=== PATIENT | male | born 1990 | race Caucasian/White ===

== ENCOUNTER → 2018-02-17 | Outpatient (CLI) | payer OTHER ==
[2018-02-17 12:49] LABS: FOLLICLE STIMULAT HORMONE 2.75 IU/L; LUTEINIZING HORMONE 3.69 IU/L
== END | disposition home or self-care (01) ==
LOC: C.LAB1850 10:27
PROVIDERS: ATTEND Internal Medicine Endocrinology, Diabetes & Metabolism
DX: N52.9 Male erectile dysfunction, unspecified (principal)

== ENCOUNTER 2019-03-11 18:39 | Inpatient (IN) ==
--- OUTSIDE RECORDS SUMMARY | 2019-03-11 18:42 | External Medical Summary | Continuity of Care Document ---
:1990 Author Name Luc Rodriguez, Provider Address Unavailable Unavailable , Care Team Providers Name Role Phone Unavailable Unavailable Unavailable Aquiles Gaston M.D. Unavailable [email or web address] Unavailable Unavailable Unavailable Unavailable Unavailable Problems Erectile dysfunction (607.84) (N52.9) Allergies and Adverse Reactions No Known Drug Allergies (Allergy) Medications Sildenafil Citrate 100 MG Oral Tablet; T STEPHIE 1/2 TO 1 TABLET PO 1 HOUR BEFORE INTERCOURSE PRN Michael Gaston Start: 17-Feb-2018 Quantity: 5 Refills: 0 Multi Vitamin Oral Tablet; TAKE 1 TABLET DAILYMichael Shafer Start: 24-Nov-2017 Refills: 0 Procedures History of Gastric Surgery Status: Compl eted History of Appendectomy Status: Complete d Immunizations Immunizations not documented Family History Grandparent Family history of Alzheimer's disease (V17.2) (Z82.0) Status : Active Family history of hypertension (V17.49) (Z82.49) Status: Act emigdio Father Family history of hypertension (V17.49) (Z82.49) Status: Act emigdio Mother Family history of hyperlipidemia (V18.19) (Z83.438) Status: Active Social History - Smoking Status Never smoker Plan of Treatment Planned Observations Planned Goals not documented Results No Known Results Results not documented Encounters Appointment; Aquiles Gaston M.D. 17-Feb-2018 9:30 Encounter Diagnosis: Problem not documented
[2019-03-11] MEDS ORDERED: ONDANSETRON INJ 2 MG/ML 2 ML VIAL IV STA (18:50)
[2019-03-11] MEDS ORDERED: SODIUM CHLORIDE 0.9% 1000ML 1,000 ML IV SCH (19:00)
[2019-03-11 19:11] LABS: Basophils # (auto) 0.01 K/uL (0-0.2); Basophils % (auto) 0.1 %; Hematocrit (blood only) 42.8 % (42-52); Hemoglobin 14.8 g/dL (14.0-18.0); Immature Granulocytes # (auto) 0.02 K/uL (0.00-0.02); Immature Granulocytes % (auto) 0.3 %; Lymphocytes # (auto) 1.31 K/uL (1.2-3.4); Lymphocytes % (auto) 18.3 %; Mean Corpuscular Hgb Conc 34.6 g/dL (32-36); Mean Corpuscular Volume 85.4 fL (80-100); Mean Platelet Volume 9.1 fL (7.4-10.4); Monocytes # (auto) 0.43 K/uL (0.11-0.59); Neutrophils # (auto) 5.38 K/uL (1.4-6.5); Neutrophils % (auto) 75.3 %; Platelet Count 225 K/uL (130-400); RDW Coefficient of Variation 12.3 % (11.5-14.5); RDW Standard Deviation 38.4 fL (36.4-46.3); Red Blood Count 5.01 M/uL (4.7-6.1); White Blood Count 7.15 K/uL (4.8-10.8)
[2019-03-11 19:20] LABS: iSTAT Creatinine 0.8 mg/dl (0.6-1.3); iSTAT Ionized Calcium 1.14 mmol/l (1.12-1.32); iSTAT Potassium 3.9 mEq/L (3.3-5.0)
[2019-03-11 19:32] LABS: Albumin Level 4.2 gm/dl (3.4-5.0); BUN Creatinine Ratio 9.9 (10-20); Calcium 8.8 mg/dl (8.5-10.1); Creatinine Clr Calc Pharmacy 138.4 ml/min; Est GFR (African American) 136.4; Est GFR (Non-African American) 117.7; Potassium 3.8 mmol/L (3.5-5.1)
[2019-03-11 19:35] LABS: Albumin Globulin Ratio 1.2 (0.9-2); Bilirubin,Total 0.7 mg/dl (0.2-1); Globulin 3.4 gm/dl (2.5-4.0); Total Protein 7.6 gm/dl (6.4-8.2)
[2019-03-11] MEDS ORDERED: IOVERSOL 100ml IV PRN (19:37)
--- NOTE | 2019-03-11 19:56 | CT Scan Report ---
ABDOMEN AND PELVIS CT WITH IV CONTRAST CT DOSE: 435.96 mGy.cm HISTORY: Mid abdominal pain. TECHNIQUE: Multiaxial CT images of the abdomen and pelvis were performed following the use of intrave nous contrast. A dose lowering technique was utilized adhering to the principles of ALARA. COMPARISON STUDY: None. FINDINGS: The lung bases are clear. No pneumoperitoneum. No pneumatosis. No fractures within the visu alized osseous structures. The liver, gallbladder, spleen, pancreas, adrenal glands, and kidneys are unremarkable. No hydronephrosis. No retroperitoneal lymphadenopathy. Normal bladder. There is suggest ion of a prior right hemicolectomy. There are dilated loops of small bowel within the mid to lower ab domen containing stool suggesting stasis in the setting of a small bowel obstruction. Some of the sma ll bowel loops are distended up to 6 cm. The exact transition point is difficult to identify. The bow el within the right lower quadrant demonstrates mild adjacent edema. IMPRESSION: 1. Multiple distended bowel loops within the mid to lower abdomen consistent with a small bowel obstr uction. Exact transition point is difficult to identify. The distended bowel loops within the right l ower quadrant demonstrate mild surrounding edema without pneumatosis. However, this could represent e valeria vascular compromise. Clinical correlation recommended. 2. Suspect a prior right hemicolectomy. Electronically signed by: Karson Ma M.D. 03/11/2019 7:54 PM
[2019-03-11] MEDS ORDERED: SODIUM CHLORIDE 0.9% 1000ML 1,000 ML IV ONE (20:03)
[2019-03-11] MEDS ORDERED: MoRPHine SULFATE 4 MG/ML 1 ML CARP\\VIAL IV PRN (20:19)
[2019-03-11] MEDS ORDERED: ACETAMINOPHEN 65 ML IV PRN (20:30)
[2019-03-11] MEDS ORDERED: ENOXAPARIN INJ 40 MG/0.4 ML SYR SQ SCH (20:30)
--- NOTE | 2019-03-11 20:34 | Emergency Department Note ---
Entered by Vanita Washington acting as a scribe for History of Present Illness General Chief complaint: Abdominal Pain Stated complaint: PAIN IN STOMACH, HX OF INTESTINE OBSTRUCTION Source: patient History of Present Illness Onset (ago): day(s) (this morning) Location: abdomen Severity: similar to prior episodes (small bowel obstructions) Pain Consistency: + intermittent Maximum Pain Intensity: 7 Quality: + sharp Associated symptoms: + denies other symptoms (groin pain, back pain) and + nausea/vomiting (Positive nausea. Negative vomiting.) The patient is a 28 year old male who presents to the ED with complaints of intermittent abdominal pain starting this morning. The patient states that he has a history of small bowel obstructions and is concerned he has another. He states that he has had 10 over his life time that is believed to be from an abdominal surgery that he had at 3 days old. He notes he believes it was for a small bowel obstruction at that time as well. He notes that his last bowel obst ruction was in October of 2016. He states that this morning he started having sharp abdominal pain like he has had in the past. The patient complains of nausea. The patient denies vomiting, being seen yet by someone, groin pain, back pain, and a history of a cholecystectomy. Home Medications Home Medications Medication Instructions Recorded Confirmed Type No Known Home Medications 03/11/19 03/11/19 History Allergies Allergy/AdvReac Type Severity Reaction Status Date / Time No Known Allergies Allergy Unverified 03/11/19 19:54 Past Med/Surg History Medical History Hx of small bowel obstruction Surgical History Hx of appendectomy Family History Other No significant family history Social History marital status: Single Current Living Situation: Alone current occupational status: employed Feels Safe at Home: Yes Smoking Status: Never smoker Review of Systems See HPI for pertinent positives & negatives. and A total of 10 systems reviewed and were otherwise negative Physical Exam Vital Signs Vital Signs - 24 hr 03/11/19 18:41 03/11/19 20:20 Temperature 36.8 C Temperature Source Oral Sepsis Recent Fever Within 48 Hours No Sepsis New/Unexplained Change in Mental Status No Sepsis Action Taken by Nursing No Action Required Pulse Rate 79 Pulse Rate [Finger] 66 Pulse Rhythm [Finger] Regular Respiratory Rate 16 18 Respiratory Effort / Characteristics Non-Labored Spontaneous Respiratory Depth Normal Blood Pressure 159/91 H Blood Pressure [Right Arm] 145/81 H Blood Pressure Mean 113 Blood Pressure Mean [Right Arm] 102 Blood Pressure Position [Right Arm] Sitting Pulse Oximetry 98 99 Oxygen Delivery Method Room Air Room Air GENERAL: Patient is awake, alert, and in no acute distress.Patient is resting comfortably and showing no signs of anxiety EYES: The conjunctivae are clear. The pupils are round and reactive. EARS, NOSE, MOUTH AND THROAT: The nose is without any evidence of any deformity. Mucous membranes are moist.Tongue is midline NECK: The neck is nontender and supple. RESPIRATORY: Normal respiratory effort is noted. There is no evidence of wheezing rhonchi or rales to auscultation. CARDIOVASCULAR: Regular rate and rhythm noted. There no murmurs rubs or gallops normal S1 normal S2 GASTROINTESTINAL: The abdomen is mildly distended, but soft. Bowel sounds are present in all quadrants. Abdomen is diffusely tender to palpation. MUSCULOSKELETAL/EXTREMITIES: There is no evidence of gross deformity. Full range of motion is noted in the hips and shoulders. SKIN: There is no obvious evidence of any rash. There are no petechiae, pallor or cyanosis noted. NEUROLOGIC: Patient is awake alert and oriented x3. Course 1848: The patient was evaluated in room B9. A complete history and physical exam was performed. 1957: I reevaluated the patient and he is feeling better. I discussed the treatment plan with him. He verbally agrees and understands. 2007: Dr. Annie BYERS Hospitalist is aware of the patient. 2024: I discussed the patient's case with Dr. Annie BYERS [facility]. He will evaluate him for further management. Consultations Consultation #1: I discussed the patient's case with Dr. Annie BYERS [facility]. He will evaluate him for further management. Time: 20:25 Administered Medications Sodium Chloride (Nss 1000ml) 1,000 mls @ 999 mls/hr IV .Q1H1M ONE Stop: 03/11/19 21:03 Last Admin: 03/11/19 20:19 Dose: 999 mls/hr Documented by: [id number] Ioversol (Optiray 320 100ml) 94 ml IV ONCE PRN PRN Reason: Interaction Checking Stop: 03/15/19 19:36 Last Admin: 03/11/19 19:37 Dose: 94 ml Documented by: [id number] Discontinued Medications Sodium Chloride (Nss 1000ml) 1,000 mls @ 999 mls/hr IV .Q1H1M VITALIY Stop: 03/11/19 20:00 Last Infusion: 03/11/19 20:13 Dose: 0 mls/hr Documented by: [id number] Admin: 03/11/19 19:12 Dose: 999 mls/hr Documented by: [id number] Medical Decision Making Differential Diagnosis Differential diagnosis: Etiologies such as biliary colic, cholecystitis, hepatitis, pancreatitis, cardiac disease, pancreatitis, gastritis, peptic ulcer disease, appendicitis, cystitis, diverticulitis, mesenteric ischemia, inflammatory bowel disease, ileus, bowel obstruction, testicular torsion, aortic pathology, shingles, as well as others were considered. Medical Records Attestation: I reviewed the patient's medical records. Home Medications Current Medication List: was personally reviewed by me Laboratory Data Attestation: I reviewed the patient's lab results. Result diagrams: 03/11/19 19:04 03/11/19 19:04 Lab Results 03/11/19 03/11/19 03/11/19 Range/Units 19:04 19:04 19:06 WBC 7.15 (4.8-10.8) K/uL RBC 5.01 (4.7-6.1) M/uL Hgb 14.8 (14.0-18.0) g/dL POC Hgb 15.0 (14.0-18.0) g/dl Hct 42.8 (42-52) % POC Hct 44 (42-52) % MCV 85.4 (80-100) fL MCH 29.5 (25-34) pg MCHC 34.6 (32-36) g/dL RDW Std Deviation 38.4 (36.4-46.3) fL RDW Coeff of Siria 12.3 (11.5-14.5) % Plt Count 225 (130-400) K/uL MPV 9.1 (7.4-10.4) fL Immature Gran % (Auto) 0.3 % Neut % (Auto) 75.3 % Lymph % (Auto) 18.3 % Trimble % (Auto) 6.0 % Eos % (Auto) 0.0 % Baso % (Auto) 0.1 % Immature Gran # (Auto) 0.02 (0.00-0.02) K/uL Neut # (Auto) 5.38 (1.4-6.5) K/uL Lymph # (Auto) 1.31 (1.2-3.4) K/uL Trimble # (Auto) 0.43 (0.11-0.59) K/uL Eos # (Auto) 0.00 (0-0.5) K/uL Baso # (Auto) 0.01 (0-0.2) K/uL POC Sodium 142 (135-144) mEq/L Sodium 140 (136-145) mmol/L POC Potassium 3.9 (3.3-5.0) mEq/L Potassium 3.8 (3.5-5.1) mmol/L POC Chloride 103 (101-112) mEq/L Chloride 108 H (98-107) mmol/L Carbon Dioxide 27 (21-32) mmol/L POC Total CO2 25 (24-31) mEq/l Anion Gap 5.0 (3-11) POC Anion Gap 19.0 (16-25) mmol/L POC BUN 7 (7-18) mg/dl BUN 9 (7-18) mg/dl Creatinine 0.88 (0.6-1.4) mg/dl POC Creatinine 0.8 (0.6-1.3) mg/dl Est Cr Clr Drug Dosing 138.4 ml/min Est GFR ( Amer) 136.4 Est GFR (Non-Af Amer) 117.7 BUN/Creatinine Ratio 9.9 L (10-20) Glucose 87 (70-99) mg/dl POC Glucose (other) 91 (70-99) mg/dl Calcium 8.8 (8.5-10.1) mg/dl POC Ioniz Calcium Alyssa 1.14 (1.12-1.32) mmol/l Total Bilirubin 0.7 (0.2-1) mg/dl AST 18 (15-37) U/L ALT 45 (12-78) U/L Alkaline Phosphatase 72 (45-117) U/L Total Protein 7.6 (6.4-8.2) gm/dl Albumin 4.2 (3.4-5.0) gm/dl Globulin 3.4 (2.5-4.0) gm/dl Albumin/Globulin Ratio 1.2 (0.9-2) Lipase 64 L (73-393) U/L Imaging Data Radiologist's Impression: Radiology results as stated below per my review and the radiologist's interpretation: ABDOMEN AND PELVIS CT WITH IV CONTRAST CT DOSE: 435.96 mGy.cm HISTORY: Mid abdominal pain. TECHNIQUE: Multiaxial CT images of the abdomen and pelvis were performed following the use of intravenous contrast. A dose lowering technique was utilized adhering to the principles of ALARA. COMPARISON STUDY: None. FINDINGS: The lung bases are clear. No pneumoperitoneum. No pneumatosis. No fractures within the visualized osseous structures. The liver, gallbladder, spleen, pancreas, adrenal glands, and kidneys are unremarkable. No hydronephrosis. No retroperitoneal lymphadenopathy. Normal bladder. There is suggestion of a prior right hemicolectomy. There are dilated loops of small bowel within the mid to lower abdomen containing stool suggesting stasis in the setting of a small bowel obstruction. Some of the small bowel loops are distended up to 6 cm. The exact transition point is difficult to identify. The bowel within the right lower quadrant demonstrates mild adjacent edema. IMPRESSION: 1. Multiple distended bowel loops within the mid to lower abdomen consistent with a small bowel obstruction. Exact transition point is difficult to identify. The distended bowel loops within the right lower quadrant demonstrate mild surrounding edema without pneumatosis. However, this could represent early vascular compromise. Clinical correlation recommended. 2. Suspect a prior right hemicolectomy. Electronically signed by: Karson Ma M.D. 03/11/2019 7:54 PM Blood Pressure Blood Pressure Findings: Elevated blood pressure Blood Pressure Disposition: further management by hospitalist TYRON Lawrence The patient is a 28-year-old male who per department for an evaluation of lower abdominal pain. The patient has a history of surgical intervention on his abdomen when he was an . He has had intermittent small bowel obstructions over the last few years. He states his last bowel obstruction was many years ago. The patient had a soft abdomen but was distended. Given his findings on physical exam I felt the likelihood of a small bowel obstruction was possible so CT was obtained. I discussed the patient's laboratory and radiographic studies with him. I also discussed his case with the on-call [facility] hospitalist. He may require further studies but at this time his bowel obstruction appears to be present on CAT scan. There was a question of some thickening of the bowel. Lactic acid is pending at this time. Impression & Plan Small bowel obstruction, Abdominal pain Discharge Plan Visit Data Chief Complaint: Abdominal Pain Stated Complaint: PAIN IN STOMACH, HX OF INTESTINE OBSTRUCTION ED Provider: Bertin Mclean Discharge Problem: Small bowel obstruction, Abdominal pain Patient Disposition: Being Evaluated by Hospitalist Forms Stand Alone Forms: [facility] Prescriptions Prescriptions: No Action No Known Home Medications RF: 0 Referrals Referrals: PCP,NO [Primary Care Provider] - Discharge Problem: Abdominal pain Qualifiers: Abdominal location: unspecified location Qualified Code(s): R10.9 - Unspecified abdominal pain The scribe's documentation has been prepared under my direction and personally reviewed by me in its entirety. I confirm that the note above accurately reflects all work, treatment, procedures, and medical decision making performed by me.
--- NOTE | 2019-03-11 20:44 | History & Physical Report ---
Date of Service March 11, 2019 Assessment & Plan (1) Small bowel obstruction: 28 y/o M Hx multiple SBOs - last 10/2016. Has not required surgery for. 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 He states his SBOs generally resolve with bowel rest. The pt presents with abdominal pain and nausea. He denies vomiting. A CT abdomen was consistent with SBO. NPO, IVF, analgesics and antiemetics provided. He wants to hold off on an NGT so that we will reassess for placement AM or place if pain/distention increases of if he starts vomiting. The CT could not rule out a degree of vascular compromise. His exam is currently benign so that an internal hernia is less likely, however, we have ordered a lactic level. If this is elevated, surgery will be contacted. We will also repeat a lactic AM or if pain worsens. Full code - SCDs Total time for this admit including review of labs, meds, imaging, records - discussion with pt and ER attending - 38 min Present on Admission?: Yes History of Present Illness Chief Complaint: Abdominal pain Primary Care Provider: NO PCP 28 y/o M Hx multiple SBOs - last 10/2016. Has not required surgery for. 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 He states his SBOs generally resolve with bowel rest. The pt presents with abdominal pain and nausea. He denies vomiting. A CT abdomen was consistent with SBO. PMH: 1) SBOs - multiple Surgical: 1) Appendectomy 2) Volvulus surgery Social: Works for a [employer] Drinks occasionally Smokes a hookah occasionally Allergies Allergy/AdvReac Type Severity Reaction Status Date / Time No Known Allergies Allergy Unverified 03/11/19 19:54 Home Medications Home Medications Medication Instructions Recorded Confirmed Type No Known Home Medications 03/11/19 03/11/19 History Past Med/Surg History Medical History Hx of small bowel obstruction Surgical History Hx of appendectomy Family History Other No significant family history Social History marital status: Single Current Living Situation: Alone current occupational status: employed Feels Safe at Home: Yes Smoking Status: Never smoker Review of Systems Review of Systems: Gen: Denies fevers, night sweats, rigors, fatigue, malaise, weight loss/gain ENT: Denies congestion, throat pain, hearing loss Eyes: Denies acute visual changes CV: Denies CP, palpitations Pulmonary: Denies SOB, cough, wheezing GI: Abdominal pain - denies vomiting Neuro: Denies acute or unilateral weakness, acute gait impairment, headache or acute visual changes Musculoskeletal: Denies joint pain, inflammation Endocrine: Denies polydipsia, polyuria Skin: Denies acute rashe or ulcers Physical Exam Physical Exam: General: Pleasant, young male, AAO x 3, no distress ENT: No erythema or exudates, no thrush Eyes: KWESI, EOMI Head and neck: Normocephalic, atraumatic, No JVD, neck is supple. Chest/heart: Nontender, S1,2, RRR, no murmurs, no gallops Lungs: CTAB, no wheezing or crackles Abdomen: BS are hypoactive - the abdomen is soft and exam is relatively benign after he received some pain medications Neuro: AAO x 3, speech is clear, no unilateral weakness or loss of sensation, coordination intact Musculoskeletal: No joint inflammation, muscle tenderness, FROM Skin: No acute rashes or ulcers Extremities: No clubbing, cyanosis, edema Results & Data Vital Signs (Past 12 Hours) Vital Signs Temp Pulse Pulse Resp BP BP Pulse Ox 03/11/19 20:20 66 18 145/81 H 99 03/11/19 18:41 98.2 F 79 16 159/[address] abdomen: 1. Multiple distended bowel loops within the mid to lower abdomen consistent wit h a small bowel obstruction. Exact transition point is difficult to identify. The distended bowel loops within the right lower quadrant demonstrate mild surrounding edema without pneumatosis. This could represent early vascular compromise. Clinical correlation recommended. 2. Suspect a prior right hemicolectomy.
[2019-03-11 22:06] LABS: Appearance Urine Clear (Clear); Bacteria Urine Automated Negative (Negative); Bilirubin Urine Negative (Negative); Blood Urine 1+ (Negative); Cast Urine Automated 0 /lpf (0-5); Color Urine Yellow; Glucose Urine UA Negative (Negative); Ketones Urine 2+ (Negative); Leukocyte Esterase Urine Negative (Negative); Nitrite Urine Negative (Negative); Protein Urine Negative (Negative); RBC Urine Automated 0-4 /hpf (0-4); Specific Gravity Urine 1.041 (1.000-1.030); Urobilinogen Urine Negative (Negative); WBC Urine Automated 0 /hpf (0-5)
[2019-03-11] MEDS ORDERED: ALUMINUM/MAGNESIUM SUSP 30 ML UDC PO STA (22:41)
[2019-03-11] MEDS: D5W AND LACTATED RINGERS 1,000 ML IV SCH (22:46)
[2019-03-12] MEDS: D5W AND LACTATED RINGERS 1,000 ML IV SCH (05:45)
--- NOTE | 2019-03-12 08:07 | Family Medicine Progress Note ---
Date of Service March 12, 2019 Results & Data Vital Signs (Past 12 Hours) Vital Signs Temp Pulse Pulse Resp BP BP BP 03/12/19 07:47 36.6 C 55 L 16 105/61 03/11/19 22:49 37.0 C 62 16 122/75 03/11/19 21:21 37.1 C 60 16 122/74 03/11/19 21:00 66 18 141/73 H 03/11/19 20:20 66 18 145/81 H 03/11/19 20:15 37.1 C 60 16 122/74 Pulse Ox 03/12/19 07:47 96 03/11/19 22:49 97 03/11/19 21:21 99 03/11/19 21:00 99 03/11/19 20:20 99 03/11/19 20:15 99
--- NOTE | 2019-03-12 15:28 | Discharge Summary ---
Date of Service March 12, 2019 Admission HPI Per Admitting Provider 28 y/o M Hx multiple SBOs - last 10/2016. Has not required surgery for. 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 He states his SBOs generally resolve with bowel rest. The pt presents with abdominal pain and nausea. He denies vomiting. A CT abdomen was consistent with SBO. PMH: 1) SBOs - multiple Surgical: 1) Appendectomy 2) Volvulus surgery Social: Works for a [employer] Drinks occasionally Smokes a hookah occasionally Principal Diagnosis recurrent SBO Discharge Exam Vitals noted as above and within normal limits . GENERAL: Awake, alert to person, place, and time, nontoxic-appearing, in no distress HENT: Normocephalic, atraumatic. Mucus membranes appear moist. EYES: Normal conjunctiva. Sclera non-icteric. EOMI. NECK: Supple. Full range of motion. No JVD RESPIRATORY: Clear to auscultation. Normal work of breathing. CARDIAC: Regular rate, normal rhythm. Extremities warm and well perfused, 2+ radial pulses bilaterally; 2+ posterior tibialis pulses bilaterally. ABDOMEN: Soft, non-distended. No tenderness to palpation in all four quadrants. No rebound or guarding. No masses. Bowel sounds are normal. LOWER EXTREMITIES: Inspection of calves reveal equal size bilaterally. They are non-tender. No edema. No discoloration. NEURO: No focal gross focal motor deficits noted. . CN II-XII grossly in tact. SKIN: Rash not present. No jaundice noted. Significant lesions not present. PSYCH: Appropriate mood and affect. Cooperative. Exam as done by Selene Steven MD, [employer]. Discharge Data Allergies Allergy/AdvReac Type Severity Reaction Status Date / Time No Known Allergies Allergy Unverified 03/11/19 19:54 Consultations 03/11/19 20:08 ED Decision to Admit Stat Ordered Studies 03/11/19 18:50 CT abd pelvis IV con only Stat Hospital Course (1) Small bowel obstruction: Admission: 24May - 25May 28 yo M with PMH of multiple SBOs (10-15 per report), last was in 2016. Has not received surgery for this in his adulthood -- thought to be secondary to volvulus and subsequent hemicolectomy, and also has h/o appendectomy. CT of the abdomen was consistent with SBO. Lactate was normal. He was afebrile and vitals remained stable throughout his stay. Patient was given bowel rest, IV hydration with D5 and LR. He was not actively emetic, NGT deferred. Did not require further pain medication. Diet was advanced to clears the following day after he'd had a bowel movement. Abdominal pain was resolved and he was sent home with instructions to slowly advance his diet, to remain on low fiber and low fat for the next few days. Return precautions given. Pt is to summer in [facility] and then return in the fall. Encouraged to establish with PCP in the area. . (2) Abdominal pain: Total Time Total Time Spent Total Time Spent (In Minutes): 30 Discharge Plan Discharge Items Patient Disposition: Home - Self-Care Reason For Visit: SBO Discharge Diagnosis: small bowel obstruction Condition: Good Discharge Goals: Decrease discomfort and Improve disease control Activity: Per 'Additional Instructions' section Lifting: Gradually increase as tolerated Bathing: No limitations Sexual Activity: When tolerated Exercise/Sports: Gradually increase as tolerated Driving/Machine Use: No limitations Non-emergency contact: Primary Care Provider Call non-emergency contact if: you have any medication questions, your pain is not controlled and your temperature is above 100.5 Follow-up/Referrals: PCP,NO [Primary Care Provider] - Diet: Regular Addtl Provider Instructions: You were admitted due to a recurrent small bowel obstruction. You were given bowel rest and IV fluid hydration. Today your pain is much improved, you've had a bowel movement and are tolerating a low fiber low fat diet. Please gradually increase your diet when you go home, as tolerated -- aim for low fiber and low fat so things like scrambled eggs, mashed potatoes, cottage cheese, applesauce. Over the next week, gradually start to introduce more fibrous options like fruits and vegetables. Please make sure to hydrate -- aim for 70-80 ozs of water per day. Please find and establish with a primary care provider in [facility], this will be important moving forward for your health. If your pain returns, please do not hesitate to return to the ED -- or if you have concerning symptoms like abdominal distention, not passing gas, abdominal pain, nausea and vomiting. Be Well A Maurizio BRIONES Prescriptions: No Action No Known Home Medications RF: 0 Stand-Alone Forms: My [facility] Discharge Orders: Discharge Order (Routine); Ordered 03/12/19 Ordered By: Selene Steven Admission Data Admit Date/Time: 03/11/19 20:19 Attending Provider: Talia Stewart Admit Provider: Wilfredo Hackett Primary Care Provider: PCP,NO Other Providers: Wilfredo Hackett Service: Medical Other Interventions: Discharge Summary Assessment (RN) Last Done: 03/12/19 16:03 Pending Studies at Discharge: No DC Date/Time DO NOT enter until pt leaves facility: 03/12/19 18:05 Supervising Physician Co-Signing Physician Notes Patient seen and examined with Dr. Steven. Agree with history, exam findings, assessment and plan of care as outlined. 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 He has had >10 episodes of SBO in the past. Today, he is feeling much better. Abdominal pain resolved. No episodes of nausea or vomiting. Had two bowel movements since admission. Tolerated clears at lunch. Abdominal exam soft and without any tenderness. Discussed continuing to advance his diet at home slowly. Dispo: Discharge home today. I personally spent 20 minutes discharge planning for this patient. Resident Activity Tracking Resident Involvement: Resident Care Provided Care Provided: Adult Hospital Medicine
== END 2019-03-12 18:05 | disposition home or self-care (01) | DRG 390 ==
LOC: ED 18:39 → SUATTDRO 20:19 → 3N 20:19